=== PATIENT | female | born 1975 | race African-American/Black ===

== ENCOUNTER 2021-08-15 15:07 | Emergency (ER) | payer OTHER, BC ==
[2021-08-15] MEDS ORDERED: Amoxicillin/Potassium Clav 875 MG TAB ONE (15:47)
[2021-08-15] MEDS ORDERED: Boostrix 0.5 ML (Tdap) VIAL ONE (15:47)
== END 2021-08-15 16:15 | disposition home or self-care (01) ==
LOC: NAV ERS 15:07
DX: S91.352A Open bite, left foot, initial encounter (principal); S91.052A Open bite, left ankle, initial encounter; Z23 Encounter for immunization; W54.0XXA Bitten by dog, initial encounter
CPT/HCPCS: 90471; 90715

== ENCOUNTER 2023-09-07 15:47 | Emergency (ER) | payer BC ==
[2023-09-07 17:30] LABS: Bilirubin Negative (Negative); Blood, Urine Large (Negative); Clarity Clear (Clear); Glucose, Urine (Dipstick) Negative (Negative); Ketone, Urine Negative (Negative); Leukocyte Moderate (Negative); Nitrite Negative (Negative); Protein, Urine (Dipstick) Trace mg/dL (Neg-Trace); Specific Gravity, Urine 1.015 (1.005-1.030)
[2023-09-07 17:38] LABS: CAUTI Indications for Culture Dysuria,urgency,freq; RBC/HPF Greater than 50 HPF (0-3); Squamous Epithelial None Seen HPF (0-3); WBC/HPF 21-50 HPF (0-3)
[2023-09-07 17:39] LABS: Bacteria/HPF Rare-Few HPF (None Seen)
[2023-09-07 17:40] LABS: Urine Culture Reflex Yes Yes
== END 2023-09-07 17:55 | disposition home or self-care (01) ==
LOC: NAV ERS 15:47
DX: N39.0 Urinary tract infection, site not specified (principal); R31.9 Hematuria, unspecified; R03.0 Elevated blood-pressure reading, without diagnosis of hypertension
CPT/HCPCS: 81001; 87077; 87086; 87186; 99283